=== PATIENT | male | born 1940 | race Hispanic/Latino ===

== ENCOUNTER 2017-11-18 06:30 | Inpatient (IN) | payer MEDICARE, BC ==
--- NOTE | 2017-11-18 06:43 | ED PDOC ---
Arrival/HPI - General Chief Complaint: Dizziness/Lightheaded Time Seen by Provider: 11/18/17 06:33 Historian: Patient - History of Present Illness Narrative History of Present Illness (Text): 76yoM, who has cardiac history, 1 stent from prior and now x2 stents placed past Monday at [facility] in [place], and now past 1 day feeling dizziness with stumbling, but no head injury/neck pain/abdomen pain/numbness/tingling/loss of limb function/pain with urination/difficulty breathing/chest pain. 11/18/17 06:40 Time/Duration: 24 hours Symptom Onset: Gradual Symptom Course: Intermittent Activities at Onset: Rest Context: Sitting Past Medical History - Provider Review Nursing Documentation Reviewed: Yes - Travel History Have you recently traveled outside [place] w/in the past 3 mons?: No - Cardiac Hx Cardiac Disorders: Yes Hx Hypertension: Yes - Pulmonary Hx Respiratory Disorders: No - Neurological Hx Neurological Disorder: No - HEENT Hx HEENT Disorder: No - Renal Hx Renal Disorder: No - Endocrine/Metabolic Hx Endocrine Disorders: No - Hematological/Oncological Hx Blood Disorders: No - Integumentary Hx Dermatological Disorder: No - Musculoskeletal/Rheumatological Hx Musculoskeletal Disorders: No - Gastrointestinal Hx Gastrointestinal Disorders: No - Genitourinary/Gynecological Hx Genitourinary Disorders: No - Psychiatric Hx Psychophysiologic Disorder: No Hx Substance Use: No - Surgical History Hx Appendectomy: Yes Family/Social History - Physician Review Nursing Documentation Reviewed: Yes Smoking Status: Never Smoked Hx Alcohol Use: No Hx Substance Use: No Allergies/Home Meds Allergies/Adverse Reactions: Allergies No Known Allergies Allergy (Verified 11/18/17 06:37) Home Medications: Home Meds Medication Instructions Recorded Confirmed Aspirin [Ecotrin] 81 mg PO DAILY 11/18/17 11/18/17 Clopidogrel [Plavix] 75 mg PO DAILY 11/18/17 11/18/17 Metoprolol Succinate [Toprol XL] 50 mg PO DAILY 11/18/17 11/18/17 Rosuvastatin Calcium [Crestor] 40 mg PO DAILY 11/18/17 11/18/17 Review of Systems - Physician Review All systems were reviewed & negative as marked: Yes - Review of Systems Constitutional: Normal Eyes: Normal ENT: Normal Respiratory: Normal Cardiovascular: Normal Gastrointestinal: Normal Genitourinary Male: Normal Musculoskeletal: Normal Skin: Normal Neurological: Dizziness Endocrine: Normal Hemo/Lymphatic: Normal Psychiatric: Normal Physical Exam Vital Signs Reviewed: Yes Vital Signs Temp Pulse Resp BP Pulse Ox 11/18/17 10:25 70 18 103/71 97 11/18/17 10:00 70 103/70 11/18/17 08:35 99.7 F H 78 18 119/71 98 11/18/17 07:03 100.4 F H 11/18/17 06:32 100.8 F H 88 18 120/61 94 L Temperature: Febrile Blood Pressure: Hypertensive Pulse: Regular Respiratory Rate: Normal Appearance: Positive for: Well-Appearing, Non-Toxic, Comfortable Pain Distress: None Mental Status: Positive for: Alert and Oriented X 3 - Systems Exam Head: Present: Atraumatic, Normocephalic Pupils: Present: PERRL Extroacular Muscles: Present: EOMI Conjunctiva: Present: Normal Ears: Present: Normal Mouth: Present: Moist Mucous Membranes Pharnyx: Present: Normal Nose (External): Present: Atraumatic Nose (Internal): Present: Normal Inspection Neck: Present: Normal Range of Motion Respiratory/Chest: Present: Clear to Auscultation, Good Air Exchange Cardiovascular: Present: Regular Rate and Rhythm Abdomen: No: Tenderness, Distention, Normal Bowel Sounds, Peritoneal Signs, Rebound, Guarding, McBurney's Point Tender, Rovsing's Sign Present, Hernias, Feeding Tubes, Ostomy Tubes, Mass/Organomegaly, Scars, Other Back: Present: Normal Inspection Upper Extremity: Present: Normal Inspection Lower Extremity: Present: Normal Inspection Neurological: Present: GCS=15, CN II-XII Intact, Speech Normal, Motor Func Grossly Intact Skin: Present: Warm, Normal Color Psychiatric: Present: Alert, Oriented x 3, Normal Insight, Normal Concentration Medical Decision Making ED Course and Treatment: 76yoM, who has cardiac history, 1 stent from prior and now x2 stents placed past Monday at [facility] in [place], and now past 1 day feeling dizziness with stumbling, but no head injury/neck pain/abdomen pain/numbness/tingling/loss of limb function/pain with urination/difficulty breathing/chest pain. 11/18/17 06:44 11/18/17 07:13 IVF temp 100.8 - tylenol signed out to Dr. Valderrama to fu 76M, dizziness, after cardiac stents about 6 days ago labs, cxr, ct head. - Lab Interpretations Lab Results: 11/18/17 07:00 11/18/17 07:00 Lab Results 11/18/17 07:40: Influenza Typ A,B (EIA) Pos for influenza b H 11/18/17 07:00: Sodium 135, Potassium 4.0, Chloride 99, Carbon Dioxide 26, Anion Gap 14, BUN 13, Creatinine 0.9, Est GFR ( Amer) > 60, Est GFR (Non- Af Amer) > 60, Random Glucose 140 H, Calcium 8.9, Magnesium 1.7, Total Bilirubin 1.0, AST 65 H, ALT 59 H, Alkaline Phosphatase 58, Lactate Dehydrogenase 599, Total Creatine Kinase 235 H, CK-MB (CK-2) 1.1, CK-MB (CK-2) % Cancelled, Troponin I 0.25 H*, Total Protein 6.4, Albumin 3.8, Globulin 2.7, Albumin/Globulin Ratio 1.4 11/18/17 07:00: Urine Color Yellow, Urine Appearance Clear, Urine pH 6.0, Ur Specific [place] 1.025, Urine Protein 30 H, Urine Glucose (UA) Negative, Urine Ketones Negative, Urine Blood Trace-intact H, Urine Nitrate Negative, Urine Bilirubin Negative, Urine Urobilinogen 0.2, Ur Leukocyte Esterase Negative, Urine RBC 1 - 3, Urine WBC 0 - 2, Ur Epithelial Cells 0 - 2, Urine Bacteria Occ 11/18/17 07:00: PT 14.1 H, INR 1.22 H, APTT 32.4 11/18/17 07:00: WBC 4.3 L, RBC 4.37, Hgb 12.6 L, Hct 37.7 L, MCV 86.3, MCH 28.8 , MCHC 33.4, RDW 13.6, Plt Count 82 L, MPV 9.5, Gran % 75.9 H, Lymph % (Auto) 15.1 L, Cooper % (Auto) 8.6 H, Eos % (Auto) 0.2 L, Baso % (Auto) 0.2, Gran # 3.26 , Lymph # (Auto) 0.7 L, [place] # (Auto) 0.4, Eos # (Auto) 0.0, Baso # (Auto) 0.01 - RAD Interpretation Radiology Orders: 11/18/17 06:38 CHEST TWO VIEWS (PA/LAT) [RAD] Stat 11/18/17 06:39 HEAD W/O CONTRAST [CT] Stat - EKG Interpretation Interpreted by ED Physician: Yes (NSR, flipped t waves avr, v1, iii.) Type: 12 lead EKG Comparison: Similar to previous EKG (07/08/14) - Medication Orders Current Medication Orders: Aspirin (Ecotrin) 81 mg PO DAILY [facility] Last Admin: 11/18/17 10:25 Dose: 81 mg Clopidogrel Bisulfate (Plavix) 75 mg PO DAILY [facility] Last Admin: 11/18/17 10:17 Dose: 75 mg Guaifenesin/Dextromethorphan (Robitussin Dm) 10 ml PO Q4 [facility] Last Admin: 11/18/17 16:49 Dose: 10 ml Metoprolol Succinate (Toprol Xl) 50 mg PO DAILY [facility] Last Admin: 11/18/17 10:00 Dose: Not Given Non-Admin Reason: BP Parameters Not Met MAR Pulse and Blood Pressure Document 11/18/17 10:00 SRE (Rec: 11/18/17 16:58 SRE [id number]) Pulse Pulse Rate (60-90) 70 Blood Pressure Blood Pressure (100/60-150/90) 103/70 Rosuvastatin Calcium [Crestor] 40 Mg ( Home Med) 40 mg PO DAILY [facility] Last Admin: 11/18/17 10:25 Dose: 40 mg Oseltamivir Phosphate (Tamiflu Cap) 75 mg PO BID [facility] PRN Reason: Protocol Stop: 11/23/17 08:47 Last Admin: 11/18/17 19:36 Dose: 75 mg Discontinued Medications Acetaminophen (Tylenol 325mg Tab) 975 mg PO STAT STA Stop: 11/18/17 06:46 Last Admin: 11/18/17 07:03 Dose: 975 mg MAR Pain/Vitals Document 11/18/17 07:03 MS (Rec: 11/18/17 07:11 MS [id number]) Pain Reassessment Is This A Pain ReAssessment? No Sleep Is patient sleeping during reassessment? No Vitals Temperature (97.6 F-99.6 F) 100.4 F Temperature Source Oral Re-Assess: MAR Pain/Vitals Document 11/18/17 08:03 SRE (Rec: 11/18/17 08:21 SRE [id number]) Pain Reassessment Is This A Pain ReAssessment? Yes Sleep Is patient sleeping during reassessment? No Aspirin (Aspirin Chewable) 324 mg PO STAT STA Stop: 11/18/17 09:54 Last Admin: 11/18/17 10:17 Dose: 324 mg Sodium Chloride (Sodium Chloride 0.9%) 1,000 mls @ 999 mls/hr IV .Q1H1M STA Stop: 11/18/17 07:45 Last Admin: 11/18/17 07:12 Dose: 999 mls/hr eMAR Start Stop Document 11/18/17 07:12 MS (Rec: 11/18/17 07:14 MS [id number]) Intravenous Solution Start Date 11/18/17 Start Time 07:13 End Date 11/18/17 End time 08:13 Total Infusion Time 60 NIHSS Stroke Scale 3 - Date/Time Evaluation Performed Date Performed: 11/18/17 When Was NIHSS Performed: Baseline - How Severe is the Stroke Level of Consciousness: 0=Alert LOC to Questions: 0=Both comments correct LOC to commands: 0=Obeys both correctly Best Gaze: 0=Normal Visual: 0=No visual loss Facial: 0=Normal Motor Arm - Left: 0=No drift Motor Arm - Right: 0=No drift Motor Leg - Left: 0=No drift Motor Leg - Right: 0=No drift Limb Ataxia: 0=Absent Sensory: 0=Normal Best Language: 0=No aphasia Dysarthia: 0=Normal articulation Extinction & Inattention (Neglect): 0=Normal, no object Score: 0 Severity Of Stroke: 0 = No Stroke Disposition/Present on Arrival - Present on Arrival History of DVT/PE: No History of Uncontrolled Diabetes: No Urinary Catheter: No History of Decub. Ulcer: No History Surgical Site Infection Following: None - Disposition Diagnosis: Influenza Disposition: HOSPITALIZED Patient Problems: Current Active Problems Problem Status Onset Influenza Acute Condition: GUARDED
[2017-11-18] MEDS ORDERED: Sodium Chloride 0.9% 1,000 ML IV STA (06:45)
--- NOTE | 2017-11-18 07:11 | ED PDOC ---
Physical Exam Vital Signs Temp Pulse Resp BP Pulse Ox 11/18/17 08:35 99.7 F H 78 18 119/71 98 11/18/17 07:03 100.4 F H 11/18/17 06:32 100.8 F H 88 18 120/61 94 L Medical Decision Making ED Course and Treatment: 11/18/17 07:00 Case signed out to me by Dr. Jeffery. Patient is a 76 year old male, whose past medical history includes hypertension and hyperlipidemia, who presents to the emergency department complaining of dizziness and cough. Patient is febrile and reports having cardiac stents placed 6 days ago. Currently pending labs, Chest X-ray, and head CT. Plan is to admit patient. 11/18/17 09:[address]: Creator : Kale Perez MD FINDINGS: HEMORRHAGE: No intracranial hemorrhage. BRAIN: No mass effect or edema. No atrophy or chronic microvascular ischemic changes. VENTRICLES: Unremarkable. No hydrocephalus. CALVARIUM: Unremarkable. PARANASAL SINUSES: Unremarkable as visualized. No significant inflammatory changes. MASTOID AIR CELLS: Unremarkable as visualized. No inflammatory changes. OTHER FINDINGS: None. IMPRESSION: Cortical atrophy, periventricular small vessel disease 11/18/17 09:51 Case was discussed in detail with Dr. Gutierrez who will admit the patient to Telemetry. Case discussed with Dr. Sutton cardiology who came to evaluate patient in the ED. CT head negative. Troponin elevated which is most likely secondary to recent catherization of his heart done by Dr. Sutton. Patient has a positive flu test and in light of recent cath he is at risk for decompensation clinically so he needs to be admitted. - Critical Care Critical Care Minutes: 30 minutes - Lab Interpretations Lab Results: 11/18/17 07:00 11/18/17 07:00 Lab Results 11/18/17 07:40: Influenza Typ A,B (EIA) Pos for influenza b H 11/18/17 07:00: Sodium 135, Potassium 4.0, Chloride 99, Carbon Dioxide 26, Anion Gap 14, BUN 13, Creatinine 0.9, Est GFR ( Amer) > 60, Est GFR (Non- Af Amer) > 60, Random Glucose 140 H, Calcium 8.9, Magnesium 1.7, Total Bilirubin 1.0, AST 65 H, ALT 59 H, Alkaline Phosphatase 58, Lactate Dehydrogenase 599, Total Creatine Kinase 235 H, CK-MB (CK-2) 1.1, CK-MB (CK-2) % Cancelled, Troponin I 0.25 H*, Total Protein 6.4, Albumin 3.8, Globulin 2.7, Albumin/Globulin Ratio 1.4 11/18/17 07:00: Urine Color Yellow, Urine Appearance Clear, Urine pH 6.0, Ur Specific [place] 1.025, Urine Protein 30 H, Urine Glucose (UA) Negative, Urine Ketones Negative, Urine Blood Trace-intact H, Urine Nitrate Negative, Urine Bilirubin Negative, Urine Urobilinogen 0.2, Ur Leukocyte Esterase Negative, Urine RBC 1 - 3, Urine WBC 0 - 2, Ur Epithelial Cells 0 - 2, Urine Bacteria Occ 11/18/17 07:00: PT 14.1 H, INR 1.22 H, APTT 32.4 11/18/17 07:00: WBC 4.3 L, RBC 4.37, Hgb 12.6 L, Hct 37.7 L, MCV 86.3, MCH 28.8 , MCHC 33.4, RDW 13.6, Plt Count 82 L, MPV 9.5, Gran % 75.9 H, Lymph % (Auto) 15.1 L, [place] % (Auto) 8.6 H, Eos % (Auto) 0.2 L, Baso % (Auto) 0.2, Gran # 3.26 , Lymph # (Auto) 0.7 L, [place] # (Auto) 0.4, Eos # (Auto) 0.0, Baso # (Auto) 0.01 I have reviewed the lab results: Yes - RAD Interpretation Radiology Orders: 11/18/17 06:38 CHEST TWO VIEWS (PA/LAT) [RAD] Stat 11/18/17 06:39 HEAD W/O CONTRAST [CT] Stat Blade Boner: Radiologist - Medication Orders Current Medication Orders: Aspirin (Ecotrin) 81 mg PO DAILY [facility] Clopidogrel Bisulfate (Plavix) 75 mg PO DAILY [facility] Guaifenesin/Dextromethorphan (Robitussin Dm) 10 ml PO Q4 [facility] Metoprolol Succinate (Toprol Xl) 50 mg PO DAILY [facility] Rosuvastatin Calcium [Crestor] 40 Mg ( Home Med) 40 mg PO DAILY [facility] Oseltamivir Phosphate (Tamiflu Cap) 75 mg PO BID [facility] PRN Reason: Protocol Stop: 11/23/17 08:47 Discontinued Medications Acetaminophen (Tylenol 325mg Tab) 975 mg PO STAT STA Stop: 11/18/17 06:46 Last Admin: 11/18/17 07:03 Dose: 975 mg MAR Pain/Vitals Document 11/18/17 07:03 MS (Rec: 11/18/17 07:11 MS [id number]) Pain Reassessment Is This A Pain ReAssessment? No Sleep Is patient sleeping during reassessment? No Vitals Temperature (97.6 F-99.6 F) 100.4 F Temperature Source Oral Re-Assess: MAR Pain/Vitals Document 11/18/17 08:03 SRE (Rec: 11/18/17 08:21 SRE [id number]) Pain Reassessment Is This A Pain ReAssessment? Yes Sleep Is patient sleeping during reassessment? No Sodium Chloride (Sodium Chloride 0.9%) 1,000 mls @ 999 mls/hr IV .Q1H1M STA Stop: 11/18/17 07:45 Last Admin: 11/18/17 07:12 Dose: 999 mls/hr eMAR Start Stop Document 11/18/17 07:12 MS (Rec: 11/18/17 07:14 MS [id number]) Intravenous Solution Start Date 11/18/17 Start Time 07:13 End Date 11/18/17 End time 08:13 Total Infusion Time 60 - Scribe Statement The provider has reviewed the documentation as recorded by the An Moise Provider Scribe Attestation: All medical record entries made by the An were at my direction and personally dictated by me. I have reviewed the chart and agree that the record accurately reflects my personal performance of the history, physical exam, medical decision making, and the department course for this patient. I have also personally directed, reviewed, and agree with the discharge instructions and disposition. Disposition/Present on Arrival - Present on Arrival Any Indicators Present on Arrival: No History of DVT/PE: No History of Uncontrolled Diabetes: No Urinary Catheter: No History of Decub. Ulcer: No History Surgical Site Infection Following: None - Disposition Have Diagnosis and Disposition been Completed?: Yes Diagnosis: Influenza Disposition: HOSPITALIZED Disposition Time: 08:53 Patient Plan: Admission Condition: GUARDED
[2017-11-18 07:13] LABS: BASO # 0.01 K/mm3 (0.0-2.0); BASO % 0.2 % (0.0-3.0); EOS % 0.2 % (1.5-5.0); GRAN # 3.26 (1.4-6.5); GRAN % 75.9 % (50.0-68.0); HEMOGLOBIN 12.6 g/dL (14.0-18.0); LYMPH # 0.7 (1.2-3.4); LYMPH % 15.1 % (22.0-35.0); MEAN CELL VOLUME 86.3 fl (80.0-105.0); MEAN CORPUSCULAR HEMOGLOBIN 28.8 pg (25.0-35.0); MEAN CORPUSCULAR HGB CONC 33.4 g/dl (31.0-37.0); MEAN PLATELET VOLUME 9.5 fl (7.0-11.0); MONO # 0.4 (0.1-0.6); MONO % 8.6 % (1.0-6.0); RBC 4.37 10^6/uL (3.5-6.1); RED CELL DISTRIBUTION WIDTH 13.6 % (11.5-14.5); URINE BILIRUBIN NEGATIVE (NEGATIVE); URINE BLOOD TRACE-INTACT (NEGATIVE); URINE GLUCOSE (UA) NEGATIVE (NEGATIVE); URINE LEUKOCYTE ESTERASE NEGATIVE Leu/uL (NEGATIVE); URINE NITRATE NEGATIVE (NEGATIVE); URINE PROTEIN 30 mg/dL (<30 mg/dL); URINE UROBILINOGEN 0.2 E.U./dL (<1 E.U./dL); WHITE BLOOD COUNT 4.3 10^3/ul (4.5-11.0)
[2017-11-18 07:22] LABS: ALB/GLOB RATIO 1.4 (1.1-1.8); ALBUMIN 3.8 g/dL (3.0-4.8); ALT/SGPT 59 U/L (7-56); AST/SGOT 65 U/L (17-59); BLOOD UREA NITROGEN 13 mg/dL (7-21); CALCIUM 8.9 mg/dL (8.4-10.5); GFR AFRICAN-AMERICAN > 60; GFR NON-AFRICAN AMERICAN > 60; MAGNESIUM 1.7 mg/dL (1.7-2.2)
[2017-11-18 07:25] LABS: URINE APPEARANCE CLEAR (CLEAR); URINE COLOR YELLOW (YELLOW)
[2017-11-18 07:29] LABS: INR 1.22 (0.93-1.08); PARTIAL THROMBOPLASTIN TIME 32.4 Seconds (25.1-36.5); PROTHROMBIN TIME 14.1 SECONDS (9.4-12.5)
[2017-11-18 07:48] LABS: URINE BACTERIA OCC (NEG); URINE EPITHELIAL CELLS 0 - 2 /hpf (0-5); URINE WBC 0 - 2 /hpf (0-6)
[2017-11-18 08:12] LABS: CK-MB 1.1 ng/mL (0.0-3.6); TROPONIN I 0.25 ng/mL
--- NOTE | 2017-11-18 09:22 | CT ---
PROCEDURE: CT HEAD WITHOUT CONTRAST. HISTORY: dizziness COMPARISON: None available. TECHNIQUE: Axial computed tomography images were obtained through the head/brain without intravenous contrast. Radiation dose: Total exam DLP = 870.68 mGy-cm. This CT exam was performed using one or more of the following dose reduction techniques: Automated exposure control, adjustment of the mA and/or kV according to patient size, and/or use of iterative reconstruction technique. FINDINGS: HEMORRHAGE: No intracranial hemorrhage. BRAIN: No mass effect or edema. No atrophy or chronic microvascular ischemic changes. VENTRICLES: Unremarkable. No hydrocephalus. CALVARIUM: Unremarkable. PARANASAL SINUSES: Unremarkable as visualized. No significant inflammatory changes. MASTOID AIR CELLS: Unremarkable as visualized. No inflammatory changes. OTHER FINDINGS: None. IMPRESSION: Cortical atrophy, periventricular small vessel disease
[2017-11-18] MEDS ORDERED: Promethazine DM 6.25 mg-15 mg/5 ml Syrup PO STA (09:31)
--- NOTE | 2017-11-18 09:57 | RAD ---
HISTORY: Cough COMPARISON: 01/14/2017 TECHNIQUE: Chest PA and lateral FINDINGS: LUNGS: Hyperinflation, manifestations of COPD. No active pulmonary disease. PLEURA: No significant pleural effusion identified. No pneumothorax apparent. CARDIOVASCULAR: No radiographic findings to suggest acute or significant cardiovascular disease. OSSEOUS STRUCTURES: No significant abnormalities. VISUALIZED UPPER ABDOMEN: Normal. OTHER FINDINGS: None. IMPRESSION: No active disease. No significant interval change compared to the prior examination(s).
[2017-11-18] MEDS: Metoprolol Succinate 50 mg XL Tab PO SCH (10:00)
[2017-11-18] MEDS: Rosuvastatin Calcium [Crestor] 40 MG (HOME MED) PO SCH (10:25)
[2017-11-18] MEDS: guaiFENesin DM 200 mg-20 mg/10 ml UD PO SCH ×3 (12:00→23:34)
--- NOTE | 2017-11-18 16:41 | CARD ---
APPROVED REPORT EKG Measurement Heart [id number] <Conclusion> Normal sinus rhythm Nonspecific anterior ST changes Abnormal ECG
--- NOTE | 2017-11-18 21:52 | CON ---
DATE: 11/18/2017 SUBJECTIVE: The patient is seen lying on a stretcher in the emergency room. REASON FOR CONSULTATION: Coronary artery disease, recent dyspnea. REQUESTING PHYSICIAN: Dr. Gutierrez. HISTORY OF PRESENT ILLNESS: This is a 76-year-old man with known coronary artery disease, status post recent PCI, who presented to the emergency room with complaints of worsening cough, dyspnea and fever. Initial influenza serology was positive for influenza B. He denied any chest pain and his initial electrocardiogram appeared somewhat changed from very old electrocardiogram, but he denied any chest discomfort in the recent days. He recently underwent cardiac catheterization and PCI at [facility]. He has a history of hypertension. He has undergone a prior appendectomy. MEDICATIONS AT HOME: Aspirin, Plavix, metoprolol 50 mg daily and Crestor 40 mg daily. SOCIAL HISTORY: He does not smoke or drink. He is , lives with . He is retired. FAMILY HISTORY: Both parents from age-related illness. REVIEW OF SYSTEMS: A 10-point review of systems is otherwise unremarkable. PHYSICAL EXAMINATION: GENERAL: He is an ill-appearing elderly man. VITAL SIGNS: His blood pressure is 120/70 with a pulse of 76, respirations are 18. His temperature is 100.8. HEENT: Normocephalic, atraumatic. NECK: Supple. No JVD noted. CHEST: Bilateral scattered rhonchi heard. No rales present. HEART: PMI displaced laterally. Systolic murmurs present lower left sternal border. ABDOMEN: Soft, nontender with bowel sounds. EXTREMITIES: No clubbing, cyanosis, edema. SKIN: Warm and dry. PSYCHIATRIC: Normal mood and affect. NEUROLOGIC: Alert and was x3. No gross motor sensory is appreciable. DIAGNOSTIC DATA: Potassium 4.0, BUN and creatinine 13 and 0.9, glucose is 140. CK 235 with a negative MB fraction. Troponin is 0.25. White count 4.3, hemoglobin and hematocrit 12.6 and 37.7, platelet count of 82,000. PT/PTT are 14.1 and 32.4. AST and ALT 65 and 59. Electrocardiogram reveals sinus rhythm with nonspecific intraventricular conduction delay and nonspecific ST-T abnormalities. Chest x-ray reveals a normal cardiac silhouette with clear lung goodwin. CT of the head was performed which reportedly showed cortical atrophy. IMPRESSION: 1. Acute influenza. 2. Coronary artery disease status post recent percutaneous coronary intervention, clinically stable. 3. Mildly elevated troponin with negative CK-MB, possibly secondary recent percutaneous coronary intervention and acute respiratory distress. 4. Thrombocytopenia, uncertain if this is new or old. RECOMMENDATIONS: His current cardiac medications should continue. Tamiflu has been initiated and bronchodilator therapy started as well. Supportive care is advised. A followup troponin will be planned for the morning. Troponin, EKG will be planned for the morning. Thank you for this consultation. I will be happy to follow through his hospital course. Jesus Manuel Ellis MD MTDD
[2017-11-18 23:33] VITALS: BMI 27.4
[2017-11-18] MEDS ORDERED: Influenza Vaccine 60 mcg/0.5 mL SYR (4YR UP) IM ONE (23:33)
[2017-11-18] MEDS ORDERED: Pneumococcal 23-Valent Vaccine IM ONE (23:33)
[2017-11-19] MEDS: guaiFENesin DM 200 mg-20 mg/10 ml UD PO SCH ×6 (03:54→21:46)
--- NOTE | 2017-11-19 04:10 | HP ---
CHIEF COMPLAINT AND HISTORY OF PRESENT ILLNESS: This is a 76-year-old male who is coming in to the hospital. The patient states he was dizzy. He had a stent placed about a week ago at [facility]. He states yesterday he started feeling dizziness, he was feeling weak. The patient denies any chest pain. He has no complaints of any headache or dizziness this morning. He has no fevers. No abdominal pain or back pain. No dysuria or frequency. No nocturia. He does have a cough. He states that he does feel feverish. REVIEW OF SYSTEMS: All other review of symptoms are within normal limits except what is mentioned. ALLERGIES: NO KNOWN DRUG ALLERGIES. HOME MEDICATIONS: Aspirin, Plavix, metoprolol, Crestor. SOCIAL HISTORY: He does not smoke. Denies alcohol use. PAST MEDICAL HISTORY: Coronary artery disease with stent, hypertension,dyslipidemia. PAST SURGICAL HISTORY: Appendectomy. FAMILY HISTORY: Noncontributory. PHYSICAL EXAMINATION: VITAL SIGNS: His T-max is 100.8, pulse is 78, blood pressure 119/71, respirations is 18, O2 saturation 98%. GENERAL: The patient lying in bed, uncomfortable, and in no acute distress. HEENT: Atraumatic and normocephalic. Anicteric sclerae. Moist mucosa. [place] conjunctivae. No oral lesions. NECK: No JVD, anterior and posterior adenopathy, thyromegaly, or bruits. CARDIOVASCULAR: S1 and S2 regular. No murmur, rubs, or gallop. LUNGS: Clear to auscultation bilaterally. No wheezes, rales, or rhonchi. ABDOMEN: Bowel sounds are positive. Soft, nontender and nondistended. No hepatosplenomegaly. No rebound and no guarding EXTREMITIES: No cyanosis, clubbing, or edema. NEUROLOGIC: No facial asymmetry. Tongue is midline. No uvula deviation. Power is 5/5 upper extremity and lower extremity. Sensation intact in upper extremity and lower extremity. PSYCHIATRIC: She is awake, alert and oriented x3. No anxiety or depression. She has normal affect. GENITOURINARY: No CVA tenderness. VASCULAR: 2+ pulses in the carotid pulses and pedal pulses. SKIN: No erythema or nodules SPINE: Shows normal curvature. LABORATORY DATA: White count 4.3, hemoglobin 12.6. INR is 1.2. Chemistry shows a troponin of 0.25. Urine shows nitrites negative, bilirubin is negative. Serology, she is positive for influenza. Chest x-ray shows no acute disease. CT of the head done shows cortical atrophy. ASSESSMENT: 1. Viral syndrome, secondary to influenza. 2. Coronary artery disease with stent. 3. Dyslipidemia. PLAN: The patient is going to be admitted at the hospital. He has been started on Tamiflu. He is on metoprolol and aspirin for his coronary artery disease. He had a positive flu swab. The patient is going to be seen by Dr. Ellis. The patient is on aspirin daily. He is going to continue with Plavix. He is on Tylenol as needed. He is on a heart-healthy diet. We will get repeat troponin done. The patient's EKG shows sinus rhythm. No ST-T changes. Gael Gutierrez MD
[2017-11-19] MEDS: Dextrose 5%/0.9% NS 1,000 ML IV SCH ×2 (07:45→21:46)
[2017-11-19] MEDS: Albuterol-Ipratrop 3 mg / 0.5 (3 ml) UD IH SCH (08:01)
[2017-11-19] MEDS: Metoprolol Succinate 50 mg XL Tab PO SCH (10:00)
--- NOTE | 2017-11-19 13:35 | PN ---
DATE: 11/19/2017 SUBJECTIVE: The patient is seen lying in bed in the emergency room. He feels fairly weak and dizzy. He denies any chest pain. He continues to have an incessant cough and has developed a headache and abdominal discomfort. His current medications include DuoNeb inhaler, Ecotrin, Levaquin, Plavix, Robitussin, Crestor, Tamiflu, and Toprol XL. OBJECTIVE: GENERAL: He is an elderly man who appears uncomfortable secondary to his headache and cough. VITAL SIGNS: His blood pressure is 126/70 with a pulse of 90 and sinus, respirations are 16, he is currently afebrile. HEENT: No JVD. CHEST: Bilateral scattered rhonchi heard. No rales noted. HEART: PMI in normal position. No pathological gallops noted. ABDOMEN: Soft, nontender, with positive bowel sounds. EXTREMITIES: No edema. DIAGNOSTIC DATA: Followup troponin 0.12. IMPRESSION: 1. Acute influenza, remains fairly symptomatic. 2. Coronary artery disease, status post recent percutaneous coronary intervention. Clinically stable, with borderline troponin, likely no clinical significance. 3. Abdominal pain and headache, likely due to incessant coughing. 4. Dizziness and lightheadedness with no clear hypotension; however, likely somewhat volume depleted from acute illness. 5. Thrombocytopenia. Repeat platelet count needs to be checked. RECOMMENDATIONS: IV hydration is advised. His current cardiac medications should continue. Antitussive therapy and bronchodilator therapy should continue. Repeat CBC to monitor his platelet count is advised. We will follow along as needed. Jesus Manuel Ellis MD
[2017-11-19] MEDS: levoFLOXacin 500 MG TAB PO SCH (14:10)
[2017-11-19] MEDS: Rosuvastatin Calcium [Crestor] 40 MG (HOME MED) PO SCH (14:18)
--- NOTE | 2017-11-19 22:12 | CON ---
DATE: 11/19/2017 Patient is seen in the emergency room earlier today. CHIEF COMPLAINT: Cough times several days. HISTORY OF PRESENT ILLNESS: This is a 76-year-old male with a history of coronary artery disease and cardiac cath with stent placement earlier this week at [facility], had been complaining of weakness, dizziness, cough and no headaches. No abdominal pain, diarrhea or constipation. No bright red blood per rectum. No melena. He did have occasional fever and chills, and no chest pain at this time. No dysuria or frequency. PAST MEDICAL HISTORY: Significant for cardiac disease and arthritis and hypertension. PAST SURGICAL HISTORY: Significant for appendectomy and a cardiac cath with stent placement. ALLERGIES: PATIENT HAS NO KNOWN ALLERGIES TO ANY MEDICATIONS OR ANTIBIOTICS. MEDICATIONS AT HOME: Include Crestor at 40 mg a day, which is rosuvastatin; metoprolol, which is Toprol at 50 mg a day; clopidogrel, which is Plavix at 75 mg a day and aspirin at 81 mg a day. PHYSICAL EXAMINATION: GENERAL: Patient seen in bed, in no acute distress, somewhat short of breath, answering questions. VITAL SIGNS: Temperature of 100.8 and pulse of 88. He is on a beta-mirella. Respiratory rate of 20, 96% saturation in room air. HEENT: Unremarkable. NECK: Supple. LUNGS: Have decreased breath sounds. HEART: Normal S1, S2. LABORATORY EXAMINATION: Reveals a white count of 4.3, hemoglobin of 12.6, platelets of 82,000 and coagulation is noted. Glucose is 140, AST 65, ALT is 59, troponin 0.25. CK is 235. Urinalysis is unremarkable and influenza is positive and influenza B microbiology is pending. Patient had a chest x-ray, which was reported to be COPD with no active pulmonary disease and the patient had a CT scan of the head because of his dizziness, which is negative. Dr. Sutton's consultation is reviewed and emergency room chart is reviewed, written by Dr. Kameron Valderrama. ASSESSMENT AND PLAN: This is a 76-year-old male with history of hypertension, coronary artery disease, arthritis, now with a fever of 100.8 with: 1. Influenza B. 2. Fevers. We will treat the patient with Tamiflu and check on the blood cultures and urine cultures and urinalysis. We will also order a procalcitonin. We will follow closely with you. Patient's EKG shows a QTc of 406. We will add empiric Levaquin, pending pancultures and procalcitonin. Patient now what appears to be chronic obstructive pulmonary disease on his chest x-ray and we will make further recommendations. Jonathan Ackerman MD
[2017-11-19 22:22] LABS: URINE BILIRUBIN NEGATIVE (NEGATIVE); URINE BLOOD TRACE-INTACT (NEGATIVE); URINE GLUCOSE (UA) NEGATIVE (NEGATIVE); URINE LEUKOCYTE ESTERASE NEGATIVE Leu/uL (NEGATIVE); URINE NITRATE NEGATIVE (NEGATIVE); URINE PROTEIN TRACE mg/dL (<30 mg/dL)
[2017-11-19 22:31] LABS: URINE APPEARANCE CLEAR (CLEAR); URINE COLOR LIGHT YELLOW (YELLOW)
[2017-11-19 23:05] LABS: URINE BACTERIA MANY (NEG)
--- NOTE | 2017-11-20 01:02 | PN ---
DATE: SUBJECTIVE: Patient has no complaints of any chest pain or shortness of breath or headache or dizziness. PHYSICAL EXAMINATION: VITAL SIGNS: Temperature is 98.5, pulse is 91, blood pressure is 146/87, respirations 18. GENERAL: The patient is lying in bed, flat, comfortable. HEENT: No oral lesion. Anicteric sclerae. Moist mucosa. NECK: No JVD, adenopathy, or thyromegaly. CARDIOVASCULAR: S1 and S2, regular. No murmurs, rubs, or gallops. LUNGS: Clear to auscultation bilaterally. No wheeze, rales, or rhonchi. ABDOMEN: Bowel sounds are positive, soft, nontender, and nondistended. EXTREMITIES: No cyanosis, clubbing, or edema. LABORATORY DATA: White count of 4.3, hemoglobin 12.6, platelet count is 82. ASSESSMENT: 1. Viral syndrome secondary to influenza. 2. Coronary artery disease with stenting. 3. Dyslipidemia. 4. Thrombocytopenia. PLAN: The patient continues to have acute cough, causing him abdominal pain when he coughs. He has a benign belly, otherwise. The patient's repeat troponin is 0.12. The prolactin level is 0.08. The patient is on aspirin. He is getting IV fluids. He is going to continue with Levaquin for antibiotics. He is receiving Tamiflu as well for his flu symptoms. He is on Tylenol as needed. He is on heart-healthy diet. I will change his admission to remote tele, so he can get a room as he has been in the ER for greater than 24 hours. We will repeat his blood work tomorrow. Gael Gutierrez MD
[2017-11-20 06:20] LABS: HEMOGLOBIN 12.2 g/dL (14.0-18.0); MEAN CELL VOLUME 87.3 fl (80.0-105.0); MEAN CORPUSCULAR HEMOGLOBIN 28.2 pg (25.0-35.0); MEAN CORPUSCULAR HGB CONC 32.3 g/dl (31.0-37.0); MEAN PLATELET VOLUME 9.3 fl (7.0-11.0); RBC 4.33 10^6/uL (3.5-6.1); RED CELL DISTRIBUTION WIDTH 13.7 % (11.5-14.5)
[2017-11-20 06:27] LABS: ALB/GLOB RATIO 1.3 (1.1-1.8); ALBUMIN 3.4 g/dL (3.0-4.8); ALT/SGPT 64 U/L (7-56); AST/SGOT 69 U/L (17-59); BLOOD UREA NITROGEN 11 mg/dL (7-21); CALCIUM 8.9 mg/dL (8.4-10.5); GFR AFRICAN-AMERICAN > 60; GFR NON-AFRICAN AMERICAN > 60; WHITE BLOOD COUNT 2.3 10^3/ul (4.5-11.0)
[2017-11-20] MEDS: Albuterol-Ipratrop 3 mg / 0.5 (3 ml) UD IH SCH (07:34)
--- NOTE | 2017-11-20 08:22 | CP.PCM.PN ---
Subjective - Date & Time of Evaluation Date of Evaluation: 11/20/17 Time of Evaluation: 07:00 - Subjective Subjective: Stable on 3R. He feels better. Still some cough. No CP. V/S noted PE: Lungs: clear Cor.: S1S2 Abd.: soft Ext.: no edema Neuro.: alert Labs noted: Pl Ct. = 82,000, Trops 0.25 and 0.12 Objective - Vital Signs/Intake and Output Vital Signs (last 24 hours): Temp Pulse Resp BP Pulse Ox 98.6 F 74 20 122/72 95 11/20/17 05:18 11/20/17 05:18 11/20/17 05:18 11/20/17 05:18 11/20/17 05:18 Intake and Output: 11/20/17 11/20/17 06:59 18:59 Intake Total 1170 Output Total 1015 Balance 155 - Medications Medications: Current Medications Acetaminophen (Tylenol 325mg Tab) 650 mg PO Q4H PRN PRN Reason: Pain, Mild (1-3) Albuterol/Ipratropium (Duoneb 3 Mg/0.5 Mg (3 Ml) Ud) 3 ml IH BIDRESP [facility] Last Admin: 11/20/17 07:34 Dose: 3 ml Aspirin (Ecotrin) 81 mg PO DAILY [facility] Last Admin: 11/18/17 10:25 Dose: 81 mg Clopidogrel Bisulfate (Plavix) 75 mg PO DAILY [facility] Last Admin: 11/19/17 10:00 Dose: 75 mg Guaifenesin/Dextromethorphan (Robitussin Dm) 10 ml PO QID [facility] Last Admin: 11/19/17 21:46 Dose: 10 ml Dextrose/Sodium Chloride (Dextrose 5%/0.9% Ns 1000 Ml) 1,000 mls @ 75 mls/hr IV .[id number] [facility] Last Admin: 11/19/17 21:46 Dose: 75 mls/hr Levofloxacin (Levaquin) 500 mg PO DAILY [facility] PRN Reason: Protocol Stop: 11/28/17 10:01 Last Admin: 11/19/17 14:10 Dose: 500 mg Metoprolol Succinate (Toprol Xl) 50 mg PO DAILY [facility] Last Admin: 11/19/17 10:00 Dose: 50 mg Rosuvastatin Calcium [Crestor] 40 Mg ( Home Med) 40 mg PO DAILY [facility] Last Admin: 11/19/17 14:18 Dose: Not Given Oseltamivir Phosphate (Tamiflu Cap) 75 mg PO BID [facility] PRN Reason: Protocol Stop: 11/23/17 08:47 Last Admin: 11/19/17 19:59 Dose: 75 mg - Labs Labs: 11/20/17 05:20 11/20/17 05:20 PT 14.1 SECONDS (9.4-12.5) H 11/18/17 07:00 INR 1.22 (0.93-1.08) H 11/18/17 07:00 APTT 32.4 Seconds (25.1-36.5) 11/18/17 07:00 Assessment and Plan - Assessment and Plan (Free Text) Assessment: Cough/Dyspnea/Fever Influenza CAD/S/P recent PCI/mild + trop initially Thrombocytopenia HBP S/P appendectomy Plan: Continue cardiac meds Tamiflu OOB as florentin. F/U thrombocytopenia
[2017-11-20] MEDS: Dextrose 5%/0.9% NS 1,000 ML IV SCH (09:55)
[2017-11-20] MEDS: levoFLOXacin 500 MG TAB PO SCH (10:07)
[2017-11-20] MEDS: guaiFENesin DM 200 mg-20 mg/10 ml UD PO SCH (10:08)
[2017-11-20] MEDS: Metoprolol Succinate 50 mg XL Tab PO SCH (10:08)
[2017-11-20] MEDS: Rosuvastatin Calcium [Crestor] 40 MG (HOME MED) PO SCH (10:08)
[2017-11-20 10:14] VITALS: BP 120/76; PULSE 80
[2017-11-20 11:35] VITALS: RESP 16; TEMP 97.6; O2SAT 94
--- NOTE | 2017-11-20 11:50 | PN ---
DATE: 11/20/2017 SUBJECTIVE: Patient has no complaints of any chest pain or shortness of breath. No headache. No dizziness. He does have cough. PHYSICAL EXAMINATION VITAL SIGNS: Temperature is 98.6, pulse is 94, blood pressure is 122/72, respirations 20. GENERAL: The patient is lying in bed, flat, comfortable. HEENT: No oral lesion. Anicteric sclerae. Moist mucosa. NECK: No JVD, adenopathy, or thyromegaly. CARDIOVASCULAR: S1 and S2, regular. No murmurs, rubs, or gallops. LUNGS: Clear to auscultation bilaterally. No wheeze, rales, or rhonchi. ABDOMEN: Bowel sounds are positive. Soft, nontender and nondistended. EXTREMITIES: No cyanosis, clubbing or edema. LABS: White count of 4.3, hemoglobin 12.6, creatinine 0.9. ASSESSMENT 1. Viral syndrome secondary to influenza. 2. Coronary artery disease with stenting. 3. Dyslipidemia. 4. Thrombocytopenia. 5. Cough. PLAN: The patient is currently on IV fluids with D5 normal saline. He is going to continue his Levaquin for antibiotics. He is on Plavix. He is receiving Tamiflu for his flu. The patient is on Tylenol. He is on a heart-healthy diet. He is being followed by Cardiology and Infectious Disease. His blood work ordered for this morning is pending. Gael Gutierrez MD
--- NOTE | 2017-11-20 18:50 | CP.PCM.PN ---
Subjective - Date & Time of Evaluation Date of Evaluation: 11/20/17 Time of Evaluation: 10:10 - Subjective Subjective: Comfortable, no fevers, still with body aches but feels better. Objective - Vital Signs/Intake and Output Vital Signs (last 24 hours): Temp Pulse Resp BP Pulse Ox 98.6 F 74 20 122/72 95 11/20/17 05:18 11/20/17 05:18 11/20/17 05:18 11/20/17 05:18 11/20/17 05:18 Intake and Output: 11/20/17 11/20/17 06:59 18:59 Intake Total 1170 Output Total 1015 Balance 155 - Medications Medications: Current Medications Acetaminophen (Tylenol 325mg Tab) 650 mg PO Q4H PRN PRN Reason: Pain, Mild (1-3) Albuterol/Ipratropium (Duoneb 3 Mg/0.5 Mg (3 Ml) Ud) 3 ml IH BIDRESP [facility] Last Admin: 11/20/17 07:34 Dose: 3 ml Aspirin (Ecotrin) 81 mg PO DAILY [facility] Last Admin: 11/18/17 10:25 Dose: 81 mg Clopidogrel Bisulfate (Plavix) 75 mg PO DAILY [facility] Last Admin: 11/19/17 10:00 Dose: 75 mg Guaifenesin/Dextromethorphan (Robitussin Dm) 10 ml PO QID [facility] Last Admin: 11/19/17 21:46 Dose: 10 ml Dextrose/Sodium Chloride (Dextrose 5%/0.9% Ns 1000 Ml) 1,000 mls @ 75 mls/hr IV .[id number] [facility] Last Admin: 11/19/17 21:46 Dose: 75 mls/hr Levofloxacin (Levaquin) 500 mg PO DAILY [facility] PRN Reason: Protocol Stop: 11/28/17 10:01 Last Admin: 11/19/17 14:10 Dose: 500 mg Metoprolol Succinate (Toprol Xl) 50 mg PO DAILY [facility] Last Admin: 11/19/17 10:00 Dose: 50 mg Rosuvastatin Calcium [Crestor] 40 Mg ( Home Med) 40 mg PO DAILY [facility] Last Admin: 11/19/17 14:18 Dose: Not Given Oseltamivir Phosphate (Tamiflu Cap) 75 mg PO BID [facility] PRN Reason: Protocol Stop: 11/23/17 08:47 Last Admin: 11/19/17 19:59 Dose: 75 mg - Labs Labs: 11/20/17 05:20 11/20/17 05:20 PT 14.1 SECONDS (9.4-12.5) H 11/18/17 07:00 INR 1.22 (0.93-1.08) H 11/18/17 07:00 APTT 32.4 Seconds (25.1-36.5) 11/18/17 07:00 - Constitutional Appears: Non-toxic - Head Exam Head Exam: NORMAL INSPECTION - ENT Exam ENT Exam: Mucous Membranes Moist - Neck Exam Neck Exam: absent: Meningismus - Respiratory Exam Respiratory Exam: Decreased Breath Sounds - Cardiovascular Exam Cardiovascular Exam: +S1, +S2 - GI/Abdominal Exam GI & Abdominal Exam: Soft. absent: Tenderness Assessment and Plan - Assessment and Plan (Free Text) Plan: Assessment systemic viral illness with Influenza B COPD HTN CAD arthritis Plan Continue Tamiflu day 2 to complete 5 days complete 3 days of Levaquin for COPD (day 2 today) discussed with Dr. Brush
== END 2017-11-20 12:19 | disposition home or self-care (01) | DRG 195 ==
LOC: ED 06:30 → ERH 08:53 → 3RSO 11-19 20:43
PROVIDERS: ADMIT Internal Medicine Nephrology; ATTEND Internal Medicine Nephrology
PROC: 3E0F7GC Introduction of Other Therapeutic Substance into Respiratory Tract, Via Natural or Artificial Opening (ICD-10-PCS; principal; 2017-11-20)
DX: J10.1 Influenza due to other identified influenza virus with other respiratory manifestations (principal); D69.6 Thrombocytopenia, unspecified; J44.9 Chronic obstructive pulmonary disease, unspecified; I25.10 Atherosclerotic heart disease of native coronary artery without angina pectoris; E78.5 Hyperlipidemia, unspecified; I10 Essential (primary) hypertension; M19.90 Unspecified osteoarthritis, unspecified site; Z79.02 Long term (current) use of antithrombotics/antiplatelets; Z79.82 Long term (current) use of aspirin; Z79.899 Other long term (current) drug therapy; Z95.5 Presence of coronary angioplasty implant and graft; Z90.49 Acquired absence of other specified parts of digestive tract

== ENCOUNTER 2017-12-11 06:41 | Day surgery (SDC) | payer MEDICARE, BC ==
[2017-12-06 11:42] VITALS: BMI 26.1
[2017-12-11] MEDS ORDERED: Lidocaine 2% Inj (20ml) ONE (07:50)
[2017-12-11] MEDS ORDERED: Propofol 10 mg/ml Inj (20 ML) ONE (07:51)
[2017-12-11] MEDS ORDERED: Sodium Chloride 0.9% 1,000 ML IV SCH (08:30)
[2017-12-11 08:37] VITALS: O2SAT 98
[2017-12-11 10:36] VITALS: BP 120/76; PULSE 63; RESP 16; TEMP 98
== END 2017-12-11 10:10 | disposition home or self-care (01) ==
LOC: ENDO 06:41
PROVIDERS: ATTEND Internal Medicine Gastroenterology
DX: K21.0 Gastro-esophageal reflux disease with esophagitis (principal); K22.10 Ulcer of esophagus without bleeding; K44.9 Diaphragmatic hernia without obstruction or gangrene; K25.9 Gastric ulcer, unspecified as acute or chronic, without hemorrhage or perforation; K31.7 Polyp of stomach and duodenum; K29.80 Duodenitis without bleeding; K29.70 Gastritis, unspecified, without bleeding; I25.10 Atherosclerotic heart disease of native coronary artery without angina pectoris; Z95.5 Presence of coronary angioplasty implant and graft; K57.92 Diverticulitis of intestine, part unspecified, without perforation or abscess without bleeding
CPT/HCPCS: 43235; J2704; J7040